=== PATIENT | male | born 1990 | race Two or more races ===

== ENCOUNTER 2016-04-21 12:58 | Emergency (ER) | payer OTHER ==
[2016-04-21 13:26] VITALS: BP 124/72; PULSE 75; RESP 20; TEMP 98; O2SAT 97
[2016-04-21] MEDS ORDERED: TDAP ADULT 0.5 ML INJ (BOOSTRIX) IM ONE (13:37)
--- NOTE | 2016-04-21 14:14 | UCPHY ---
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 Sustained a superficial laceration on the right side of the neck. No bites. No laceration. No strike to the face or anywhere on his person. Since that time he has had mild discomfort. No fever or chills. No bleeding. No purulence. No surrounding erythema or edema. He was sent here by his work for worker's Comp evaluation. He has no other associated complaints or modifying factors. Tetanus was last updated less than 8 years ago. REVIEW OF SYSTEMS: Ten systems reviewed and are negative unless otherwise noted in the HPI EXAMINATION General Appearance: Alert, no distress Head: normocephalic, atraumatic Eyes: Pupils equal and round, no conjunctival pallor or injection ENT, Mouth: Mucous membranes moist Neck: Supple and nontender. Superficial scratch / abrasion to the right lateral neck, 1.5 cm. No fluctuance. No purulence. No laceration. No bleeding. No bite bartlett. Respiratory: Lungs are clear to auscultation . No wheezing or rhonchi. Cardiovascular: Regular rate and rhythm . Pulses intact distally Gastrointestinal: Abdomen is soft and nontender Back: non-tender, no bony abnormalities Neurological: A&O, nonfocal, normal gait Skin: Warm and dry, no rash Extremities: Nontender, no pedal edema Psychiatric: Mood and affect normal MDM: 2:10 p.m. superficial scratch the right side of the neck. There is no sign of infection. No lacerations, contusions, ulcerations or fluctuance. No bites anywhere. His tetanus was updated less than 8 years ago. I will discharge him home on a course of Augmentin prophylactically. Recommend bacitracin once daily to the wound. Keep covered while at work. Follow up with appropriate worker's comp clinic for definitive worker's compensation care. Return to the Urgent Care ER for any increasing redness, purulence, fluctuance, fever or chills. SUPERVISION: This patient was independently evaluated without the aide of supervising physician. (Jose Mancini) Constitutional: Initial Vital Signs Temperature (C) 36.6 C 04/21/16 13:24 Heart Rate 75 04/21/16 13:24 Respiratory Rate 20 04/21/16 13:24 Blood Pressure 124/72 H 04/21/16 13:24 O2 Sat (%) 97 04/21/16 13:24 O2 Delivery Mode Room Air Allergies/Adverse Reactions: No Known Allergies Allergy (Unverified 04/21/16 13:24) Home Medications: Medication Instructions Recorded Amoxicillin/Clavulanate Pot 875 mg PO BID #14 tab 04/21/16 [Augmentin 875 MG TAB (*)] Valium 04/21/16 Vicodin 5-300 mg Tablet 04/21/16 MDM/Departure - [facility] Course/Re-evaluation: Urgent Care PA supervision Physician documentation: The patient was evaluated and managed by the physician email marketing assistant. My co- signature indicates that I have reviewed this chart and I agree with the findings and plan of care as documented. I am the secondary supervising physician. (Shubham Oliveira) - Depart Disposition: Home, Routine, Self-Care Clinical Impression: Scratch Condition: Good Instructions: Acute Wound Care (ED), Abrasion (ED) Additional Instructions: Follow-up with worker's comp clinic and primary care physician. Return to the Urgent Care ER as discussed as needed Prescriptions: Amoxicillin/Clavulanate Pot [Augmentin 875 MG TAB (*)] 875 mg PO BID #14 tab Referrals: NONE *PRIMARY CARE P,. [Primary Care Provider] - As per Instructions Michelle De Leon MD [Medical Doctor] - As per Instructions - PQRS PQRS Measurement: not applicable (Jose Mancini)
== END 2016-04-21 14:38 | disposition home or self-care (01) ==
LOC: CED 12:58
DX: S10.91XA Abrasion of unspecified part of neck, initial encounter (principal); Y99.0 Civilian activity done for income or pay; W50.4XXA Accidental scratch by another person, initial encounter; Y92.099 Unspecified place in other non-institutional residence as the place of occurrence of the external cause; Y93.F9 Activity, other caregiving
CPT/HCPCS: G0463-PO